=== PATIENT | female | born 1950 | race Two or more races ===

== ENCOUNTER 2018-08-02 14:42 | Emergency (ER) | payer BC, MEDICARE ==
[~2018-08-02] VITALS: Ht 167.6 cm; Wt 61.2 kg
[~2018-08-02 14:42] MED LIST: LEVO75CA
[2018-08-02] MEDS ORDERED: SODIUM CHLORIDE 0.9% 500 ML IV ONE (15:34)
[2018-08-02 16:06] LABS: Basophils # (auto) 0 uL; Basophils % (auto) 0.4 % (0.0-2.0); Eosinophils # (auto) 0 uL; Eosinophils % (auto) 1.1 % (0.0-7.0); Hematocrit 39.7 % (36.0-46.0); Lymphocytes # (auto) 1.8 uL; Lymphocytes % (auto) 40.3 % (10.0-50.0); Mean Corpuscular Hemoglobin 28.9 pg (28.0-32.0); Mean Corpuscular Hgb Conc. 32.7 g/dL (32.0-36.0); Mean Corpuscular Volume 88.2 fL (80.0-100.0); Monocytes # (auto) 0.3 uL; Monocytes % (auto) 7.3 % (0.0-12.0); Neutrophils # (auto) 2.2 uL; Neutrophils % (auto) 50.9 % (37.0-80.0); Nucleated Red Blood Cells % 0.1 %; Platelet Count (auto) 239 10^3/uL (140-450); Red Cell Distribution Width 14.5 % (11.8-14.3); White Blood Cell 4.4 10^3/uL (4.4-10.8)
[2018-08-02 16:32] LABS: Alanine Aminotransferase 28 U/L (13-56); Albumin 3.9 g/dL (3.4-5.0); Anion Gap 10 (5-15); Aspartate Aminotransferase 31 U/L (15-37); Blood Urea Nitrogen 16 mg/dL (7-18); Carbon Dioxide 24 mmol/L (21-32); Chloride 109 mmol/L (98-107); GFR African American 87 mL/min; GFR Non-African American 72 mL/min; Glucose 99 mg/dL (74-106); Potassium 3.6 mmol/L (3.5-5.1); Sodium 143 mmol/L (136-145)
[2018-08-02 16:37] LABS: Alkaline Phosphatase 50 U/L (45-117); Bilirubin, Total 0.5 mg/dL (0.2-1.0); Total Protein 7.8 g/dL (6.4-8.2)
[2018-08-02 16:45] LABS: INR 0.95 (0.9-1.15); Partial Thromboplastin Time 26.8 sec (23.64-32.05)
[2018-08-02 17:57] LABS: Urine Bacteria FEW /hpf (None Seen); Urine Blood TRACE /uL (Negative); Urine Specific Gravity 1.007 (1.001-1.035); Urine WBC 183 /hpf (0 - 5); Urine WBC Clumps PRESENT /hpf (None Seen)
[2018-08-02 19:46] VITALS: BP 133/79
== END 2018-08-02 21:35 | disposition home or self-care (01) ==
LOC: EDBD 14:42 → ER 14:44
DX: N39.0 Urinary tract infection, site not specified (principal); R53.1 Weakness; R42 Dizziness and giddiness; F41.9 Anxiety disorder, unspecified; Z88.0 Allergy status to penicillin; Z79.899 Other long term (current) drug therapy
CPT/HCPCS: 36415; 70450; 71045; 76705; 80053; 81001; 83735; 84484; 85025; 85610; 85730; 93005; 94761; 99284; J7040

== ENCOUNTER 2024-01-25 14:54 | Emergency (ER) | payer OTHER ==
[~2024-01-25] VITALS: Ht 177.8 cm; Wt 54.5 kg
[~2024-01-25 14:54] MED LIST changes: -LEVO75CA; +LEVO75CA2
[2024-01-25 15:40] LABS: Basophils # (auto) 0 10 ^3/uL (0-0.2); Basophils % (auto) 0.5 % (0.0-2.0); Eosinophils # (auto) 0 10 ^3/uL (0-0.8); Eosinophils % (auto) 0.7 % (0.0-7.0); Hematocrit 37.4 % (36.0-46.0); Hemoglobin 12.4 g/dL (12.2-16.2); Lymphocytes # (auto) 3.3 10 ^3/uL (0.4-5.4); Lymphocytes % (auto) 52.7 % (10.0-50.0); Mean Corpuscular Hemoglobin 29.5 pg (28.0-32.0); Mean Corpuscular Hgb Conc. 33.3 g/dL (32.0-36.0); Mean Corpuscular Volume 88.7 fL (80.0-100.0); Monocytes # (auto) 0.4 10 ^3/uL (0-1.3); Monocytes % (auto) 7.2 % (0.0-12.0); Neutrophils # (auto) 2.4 10 ^3/uL (1.6-8.6); Neutrophils % (auto) 38.9 % (37.0-80.0); Nucleated Red Blood Cells % 0.1 %; Platelet Count (auto) 250 10^3/uL (140-450); Red Blood Cells 4.21 10^6/uL (4.0-5.20); White Blood Cell 6.2 10^3/uL (4.4-10.8)
[2024-01-25 15:58] LABS: Alanine Aminotransferase 25 U/L (7-40); Albumin 4.3 g/dL (3.2-4.8); Alkaline Phosphatase 61 U/L (46-116); Anion Gap 6 (5-15); Aspartate Aminotransferase 28 U/L (13-40); BUN/Creatinine Ratio 20.8 (10.0-20.0); Bilirubin, Total 0.4 mg/dL (0.2-1.0); Blood Urea Nitrogen 15 mg/dL (9-23); Calcium 10.2 mg/dL (8.7-10.4); Carbon Dioxide 28 mmol/L (20-31); Chloride 105 mmol/L (98-107); Glucose 96 mg/dL (74-106); Potassium 4.4 mmol/L (3.5-5.1); Sodium 139 mmol/L (136-145); Total Protein 6.8 g/dL (5.7-8.2)
--- NOTE | 2024-01-25 16:00 | DVH ---
CHEST RADIOGRAPH Indication: CHEST PAIN Technique: Single frontal view of the chest was obtained COMPARISON: None FINDINGS: Lines and Tubes: None Lungs: Clear Pleura: No effusion. No pneumothorax. Cardiomediastinal contours: Bilateral breast prosthesis. Bones: Unremarkable IMPRESSION: No acute disease.
[2024-01-25 16:20] LABS: Partial Thromboplastin Time 29.4 SEC (24.5-34.5); Prothrombin Time 10.6 sec (9.3-11.8)
--- NOTE | 2024-01-25 17:35 | ED.PDOC ---
History of Present Illness HPI Comments 73 y/o F, with a Hx of anxiety, cholelithiasis, HTN, and hypothyroidism, presents with c/o sternal chest and left-arm pain, today. Patient reports Hx of left arm pain with associated "cold sensation" for the past 2-3x weeks, with additional sudden and unprovoked onset of sternal "pressure-like" pain, today. Patient endorses no recent stressors, strenuous activities, sick contact, travel, spoiled food intake, sexual activities, or substance use/exposure along with any additional relevant or pertinent Hx, with exception of 25mg daily Losartan use. She denies having any shortness of breath, palpitations, nausea, vomiting, fever, chills, or other associated symptoms or modifiers at this time. Per EMS report, patient was given NTG en route. Chief Complaint: Chest Pain Time Seen by MD: 17:15 Primary Care Provider: UNKNOWN Reviewed Notes: Nurses Notes, Crochet Machine Operator Notes, Medications, Allergies Allergies: Uncoded Allergies: PENICILLIN (Allergy, 01/19/12) Home Meds Active Scripts Omeprazole (Gnp Omeprazole) 20 Mg Tab, 1 TAB PO BID for 10 Days, #20 TAB 1 Refill Prov:CHRISTOPHER COOPER MD 01/25/24 Diclofenac Potassium (Diclofenac Potassium) 50 Mg Tab, 1 TAB PO TIDP PRN for 5 Days, #15 TAB Prov:CHRISTOPHER COOPER MD 01/25/24 Metoclopramide Hcl (Reglan) 10 Mg Tab, 10 MG PO BID for 10 Days, #20 TAB Prov:CHRISTOPHER COOPER MD 01/25/24 Reported Medications Levothyroxine Sodium (Tirosint) 75 Mcg Cap 01/19/12 Information Source: Patient, Emergency Med Personnel Mode of Arrival: EMS Severity: Moderate Timing: Hours Duration: Since onset Prehospital treatment: 12 Lead EKG, Glass Fitter, NTG, Other (20G LAC) Past Medical History PAST MEDICAL HISTORY: Anxiety, Gallstones, HTN, Thyroid (hypothyroidism ) Surgical History: Tonsillectomy Surgical History (Other): breast implants CURRENCY EXAMINER History: Denies all CURRENCY EXAMINER Hx Family History Family History: Unknown Social History Smoker: Non-Smoker Alcohol: Denies ETOH Use Drugs: Denies Drug Use Lives In: Home Cardiovascular: reports: chest pain, left arm pain Musculoskeletal: reports: others (left-arm "cold sensation") All Other Systems: Reviewed and Negative (negative unless otherwise stated in HPI) Physical Exam General Appearance: No Apparent Distress HEENT: Normal ENT Inspection, PERRL/EOMI Neck: Full Range of Motion, Non-Tender Respiratory: Lungs Clear, No Respiratory Distress, Normal Breath Sounds Cardiovascular: No Edema, No JVD, No Murmur, No Gallop, Normal Peripheral Pulses, Regular Rate/Rhythm Breast Exam: Deferred Gastrointestinal: No Organomegaly, Non Tender, No Pulsatile Mass, Normal Bowel Sounds, Soft Genitalia: Deferred Pelvic: Deferred Rectal: Deferred Extremities: No calf tenderness, Normal capillary refill, Normal inspection, Normal range of motion, Non-tender, No pedal edema Neurologic: Alert, hydrologic modeler II-XII nml as Tested, No Motor Deficits, Normal Affect, Normal Mood, No Sensory Deficits Cerebellar Function: Normal Reflexes: Normal Skin: Dry, Normal Color, Warm Peripheral Pulses: 1+ carotid (R), 1+ carotid (L) Lymphatic: No Adenopathy Was a procedure done? Was a procedure done?: No EKG EKG : Pulse Rate (adult): 56 [place]: LAD Cardiac Rhythm: NSR Block: RBBB Hypertrophy: None ST: Normal Differential Dx Considerations may include: RI, ACS, PE, PNA, costochondritis, pericarditis, gastritis, gastroenteritis, anxiety, angina, viral syndrome, cholelithiasis, cholecystitis X-Ray, Labs, Meds, VS Vital Signs Date Time Temp Pulse Resp B/P (MAP) Pulse Ox O2 Delivery O2 Flow Rate FiO2 01/25/24 18:17 52 16 98 Room Air* 0 21 01/25/24 18:16 98.4 55 16 139/57 (84) 99 98.4 01/25/24 17:35 56 01/25/24 15:05 98.5 88 20 155/83 (107) 94 01/25/24 14:58 56 Lab Test 01/25/24 16:30 01/25/24 15:09 Range/Units Troponin I High Sensitivity 3 L 3 L </=34 ng/L White Blood Count 6.2 4.4-10.8 10^3/uL Red Blood Count 4.21 4.0-5.20 10^6/uL Hemoglobin 12.4 12.2-16.2 g/dL Hematocrit 37.4 36.0-46.0 % Mean Corpuscular Volume 88.7 80.0-100.0 fL Mean Corpuscular Hemoglobin 29.5 28.0-32.0 pg Mean Corpuscular Hemoglobin Concent 33.3 32.0-36.0 g/dL Red Cell Distribution Width 14.0 11.8-14.3 % Platelet Count 250 140-450 10^3/uL Mean Platelet Volume 7.6 6.9-10.8 fL Neutrophils (%) (Auto) 38.9 37.0-80.0 % Lymphocytes (%) (Auto) 52.7 H 10.0-50.0 % Monocytes (%) (Auto) 7.2 0.0-12.0 % Eosinophils (%) (Auto) 0.7 0.0-7.0 % Basophils (%) (Auto) 0.5 0.0-2.0 % Neutrophils # (Auto) 2.4 1.6-8.6 10 ^3/uL Lymphocytes # (Auto) 3.3 0.4-5.4 10 ^3/uL Monocytes # (Auto) 0.4 0-1.3 10 ^3/uL Eosinophils # (Auto) 0 0-0.8 10 ^3/uL Basophils # (Auto) 0 0-0.2 10 ^3/uL Nucleated Red Blood Cells 0.1 % Prothrombin Time 10.6 9.3-11.8 sec Prothrombin Time INR 1.00 0.9-1.15 Activated Partial Thromboplast Time 29.4 24.5-34.5 SEC Sodium Level 139 136-145 mmol/L Potassium Level 4.4 3.5-5.1 mmol/L Chloride Level 105 98-107 mmol/L Carbon Dioxide Level 28 20-31 mmol/L Anion Gap 6 5-15 Blood Urea Nitrogen 15 9-23 mg/dL Creatinine 0.72 0.550-1.02 mg/dL Glomerular Filtration Rate Calc 89 >90 mL/min BUN/Creatinine Ratio 20.8 H 10.0-20.0 Serum Glucose 96 74-106 mg/dL Calcium Level 10.2 8.7-10.4 mg/dL Total Bilirubin 0.4 0.2-1.0 mg/dL Aspartate Amino Transferase (AST) 28 13-40 U/L Alanine Aminotransferase (ALT) 25 7-40 U/L Alkaline Phosphatase 61 46-116 U/L Total Protein 6.8 5.7-8.2 g/dL Albumin 4.3 3.2-4.8 g/dL [address] [address] Ph: [phone] DIAGNOSTIC IMAGING Diagnostic Imaging Report : [id number] Signed PATIENT: DEX HERNANDEZ ACCT: [id number] UNIT: [id number] : 1950 LOC: ER ROOM / BED: / AGE / SEX: 73 / F ADM STATUS: REG ER SERVICE 1500 ORDERING PHYSICIAN: DEBBIE DYE MD PROCEDURE(s): CXRP - CHEST PORTABLE REASON: CHEST PAIN ORDER NUMBER(s): [id number], ACCESSION NUMBER(s): [id number] CHEST RADIOGRAPH Indication: CHEST PAIN Technique: Single frontal view of the chest was obtained COMPARISON: None FINDINGS: Lines and Tubes: None Lungs: Clear Pleura: No effusion. No pneumothorax. Cardiomediastinal contours: Bilateral breast prosthesis. Bones: Unremarkable IMPRESSION: No acute disease. ATED BY: JOSE L DAVIS MD DICTATED DATE/TIME: 01/25/241556 SIGNED BY: JOSE L DAVIS MD SIGNED DATE/TIME: 01/25/241556 CC: X-Ray, Labs, Meds, VS Comment Course in the emergency department eventful patient came in complaining of three weeks of left arm pain and today she started having chest pain Blood pressure 155/83 Chest x-ray is normal EKG shows normal sinus rhythm at 56 with left axis deviation and right bundle- branch block CBC is normal INR 1.00 CMP negative wanted him to the troponin Time of 1ST Reevaluation: 17:45 Reevaluation 1ST: Unchanged Patient Education/Counseling: Diagnosis, Treatment Family Education/Counseling: No Family Present Departure 1 Departure Time of Disposition: 17:47 Impression: Primary Impression: Musculoskeletal chest pain Additional Impression: Hypertension Ruled Out: Pneumonia Disposition: 01 HOME / SELF CARE / HOMELESS Condition: Fair Additional Instructions: You need to follow up with your doctor and possibly a rivet passer Come back to the emergency department if your pain persists or gets worse e-Prescriptions Omeprazole (Gnp Omeprazole) 20 Mg Tab 1 TAB PO BID for 10 Days, #20 TAB 1 Refill Prov: CHRISTOPHER COOPER MD 01/25/24 Diclofenac Potassium (Diclofenac Potassium) 50 Mg Tab 1 TAB PO TIDP PRN for 5 Days, #15 TAB Prov: CHRISTOPHER COOPER MD 01/25/24 Metoclopramide Hcl (Reglan) 10 Mg Tab 10 MG PO BID for 10 Days, #20 TAB Prov: CHRISTOPHER COOPER MD 01/25/24 Discharged With: Self Critical Care Note Critical Care Time?: No Stability Stability form required: No Heart Score Heart Score: Heart Score Response (Comments) Value History Slightly Suspicious 0 EKG Normal 0 Age >65 2 Risk Factors 1 or 2 risk factors 1 Troponin Normal limit 0 Total 3 I personally scribed for CHRISTOPHER COOPER MD ([email or web address]) on 01/25/24 at 17:35. Electronically submitted by Silviano Stokes ([email or web address]). CHRISTOPHER COOPER MD Jan 25, 2024 17:35
[2024-01-25] MEDS ORDERED: OMEP20TA PO (17:51)
[2024-01-25] MEDS ORDERED: DICL50TA2 PO (17:51)
[2024-01-25] MEDS ORDERED: METO-281 PO (17:51)
[2024-01-25 18:16] VITALS: BP 139/57; TEMP 98.4
[2024-01-25 18:17] VITALS: PULSE 52; RESP 16; O2SAT 98
--- NOTE | 2024-01-25 18:44 | ECG ---
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
== END 2024-01-25 18:23 | disposition home or self-care (01) ==
LOC: EDBD 14:54 → ER 14:54
DX: R07.89 Other chest pain (principal); I10 Essential (primary) hypertension; E03.9 Hypothyroidism, unspecified; Z90.89 Acquired absence of other organs; Z88.0 Allergy status to penicillin; Z79.899 Other long term (current) drug therapy
CPT/HCPCS: 36415; 71045; 80053; 84484; 85025; 85610; 85730; 93005